=== PATIENT | female | born 1975 | race Caucasian/White ===

== ENCOUNTER 2017-10-11 21:57 | Inpatient (IN) | payer OTHER, MEDICAID ==
[~2017-10-11] VITALS: Ht 162.6 cm; Wt 62.9 kg
[2017-10-11 22:04] VITALS: BP 138/85; PULSE 93; RESP 18; TEMP 98.7; O2SAT 98
[2017-10-11] MEDS ORDERED: LEVO25TA4 PO (22:16)
[2017-10-11] MEDS ORDERED: MORPHINE SULFATE 4 MG/ML INJ IV PUSH ONE (22:30)
[2017-10-11] MEDS ORDERED: METOCLOPRAMIDE HCL 10 MG/2 ML VIAL IV PUSH ONE (22:30)
[2017-10-11 23:01] LABS: AUTOMATED NEUTROPHIL # 18.1 TH/MM3 (1.8-7.7); BASOPHIL # 0.1 TH/MM3 (0-0.2); BASOPHIL % 0.3 % (0.0-2.0); EOSINOPHIL # 0.2 TH/MM3 (0-0.4); EOSINOPHIL % 0.7 % (0.0-4.0); HEMATOCRIT 37.7 % (35.0-46.0); HEMOGLOBIN 12.7 GM/DL (11.6-15.3); LYMPH % 13.1 % (9.0-44.0); LYMPHOCYTE # 2.9 TH/MM3 (1.0-4.8); MEAN CORPUSCULAR HEMOGLOBIN 30.7 PG (27.0-34.0); MEAN CORPUSCULAR HGB CONC 33.7 % (32.0-36.0); MONOCYTE # 1.1 TH/MM3 (0-0.9); NEUT % 80.9 % (16.0-70.0); PLATELET COUNT 327 TH/MM3 (150-450); RED BLOOD COUNT 4.15 MIL/MM3 (4.00-5.30); WHITE BLOOD COUNT 22.4 TH/MM3 (4.0-11.0)
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
[2017-10-11] MEDS ORDERED: IOHEXOL 350 MG/ML 10 ML VIAL (for RAD DIAG) IVCONTRAST ONE (23:16)
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
[2017-10-11 23:31] LABS: ALKALINE PHOSPHATASE 56 U/L (45-117); TOTAL BILIRUBIN ADULT 0.2 MG/DL (0.2-1.0); TOTAL PROTEIN 7.2 GM/DL (6.4-8.2)
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
[2017-10-11 23:36] LABS: ALBUMIN 3.7 GM/DL (3.4-5.0); ALT (GPT) 27 U/L (10-53); AST (GOT) 32 U/L (15-37); BICARBONATE 20.5 MEQ/L (21.0-32.0); BLOOD UREA NITROGEN 22 MG/DL (7-18); CALCIUM 8.3 MG/DL (8.5-10.1); CHLORIDE 109 MEQ/L (98-107); GLOMERULAR FILTRATION RATE 61 ML/MIN (>89); GLUCOSE,RANDOM 162 MG/DL (74-106); SODIUM (NA) 141 MEQ/L (136-145)
[2017-10-12] MEDS ORDERED: SODIUM CHLOR 0.9% 1000 ML INJ 1,000 ML IV SCH (00:47)
[2017-10-12 00:52] VITALS: BP 114/79; PULSE 85; RESP 22; O2SAT 95
[2017-10-12] MEDS: PANTOPRAZOLE SODIUM 40 MG VIAL IVP SCH (01:00)
[2017-10-12] MEDS ORDERED: ENALAPRILAT 1.25 MG/ML VIAL IV PUSH PRN (01:00)
[2017-10-12] MEDS ORDERED: MAGNESIUM HYDROXIDE SUSP 30 ML CUP PO PRN (01:00)
[2017-10-12] MEDS ORDERED: SODIUM CHLORIDE 0.9% FLUSH 10 ML FLUSH IV FLUSH PRN (01:00)
[2017-10-12] MEDS ORDERED: ACETAMINOPHEN/HYDROcodone 325 MG/5 MG TAB PO PRN (01:00)
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
[2017-10-12] MEDS: MORPHINE SULFATE 4 MG/ML INJ IV PUSH PRN ×4 (01:41→21:20)
[2017-10-12] MEDS ORDERED: MORPHINE SULFATE 4 MG/ML INJ IV PUSH ONE (01:45)
[2017-10-12 02:25] VITALS: BP 119/83; PULSE 91; RESP 16; TEMP 98.6; O2SAT 94
[2017-10-12] MEDS: ACETAMINOPHEN/HYDROcodone 325 MG/5 MG TAB PO PRN ×3 (03:39→13:40)
[2017-10-12 07:08] LABS: AUTOMATED NEUTROPHIL # 15.2 TH/MM3 (1.8-7.7); BASOPHIL % 0.1 % (0.0-2.0); HEMATOCRIT 37.5 % (35.0-46.0); HEMOGLOBIN 12.7 GM/DL (11.6-15.3); LYMPH % 6.6 % (9.0-44.0); LYMPHOCYTE # 1.1 TH/MM3 (1.0-4.8); MEAN CELL VOLUME 91.5 FL (80.0-100.0); MEAN CORPUSCULAR HEMOGLOBIN 30.9 PG (27.0-34.0); MEAN CORPUSCULAR HGB CONC 33.8 % (32.0-36.0); MONO % 5.3 % (0.0-8.0); MONOCYTE # 0.9 TH/MM3 (0-0.9); PLATELET COUNT 268 TH/MM3 (150-450); RED CELL DISTRIBUTION WIDTH 12.8 % (11.6-17.2); WHITE BLOOD COUNT 17.3 TH/MM3 (4.0-11.0)
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
[2017-10-12 07:19] LABS: ALBUMIN 3.8 GM/DL (3.4-5.0); AST (GOT) 48 U/L (15-37); BICARBONATE 19.7 MEQ/L (21.0-32.0); CALCIUM 8.5 MG/DL (8.5-10.1); CHLORIDE 106 MEQ/L (98-107); CREATININE 0.83 MG/DL (0.50-1.00); GLOMERULAR FILTRATION RATE 76 ML/MIN (>89); GLUCOSE,RANDOM 111 MG/DL (74-106); SODIUM (NA) 139 MEQ/L (136-145)
[2017-10-12 07:20] LABS: ALT (GPT) 33 U/L (10-53)
[2017-10-12 07:22] LABS: ALKALINE PHOSPHATASE 58 U/L (45-117); BLOOD UREA NITROGEN 21 MG/DL (7-18); TOTAL BILIRUBIN ADULT 0.6 MG/DL (0.2-1.0); TOTAL PROTEIN 7.4 GM/DL (6.4-8.2)
[2017-10-12] MEDS ORDERED: SENNOSIDES 8.6 MG TAB PO PRN (07:45)
[2017-10-12] MEDS ORDERED: LACTULOSE SYRUP 20 GM/30 ML CUP PO PRN (07:45)
[2017-10-12] MEDS ORDERED: BISACODYL 10 MG SUPP RECTAL PRN (07:45)
[2017-10-12 07:57] VITALS: BP 114/76; PULSE 91; RESP 20; TEMP 98.1; O2SAT 92
[2017-10-12] MEDS ORDERED: POVIDONE IODINE 5% (ANTISEPSIS KIT) 4 APPLICATIONS EACH NARE PRN (08:15)
[2017-10-12] MEDS ORDERED: METOPROLOL TARTRATE 25 MG TAB PO PRN (08:15)
[2017-10-12] MEDS ORDERED: LACTATED RINGER'S 1000 ML IV PRN (08:15)
[2017-10-12] MEDS ORDERED: SODIUM CHLORID 0.9% 500 ML IV PRN (08:15)
[2017-10-12] MEDS ORDERED: CHLORHEXIDINE GLUCONATE 2 % 1 PACK (2 CLOTHS) TOPICAL PRN (08:15)
[2017-10-12] MEDS: LEVOTHYROXINE SODIUM 25 MCG TAB PO SCH (09:15)
[2017-10-12] MEDS: DOCUSATE SODIUM 50 MG/SENNA 8.6 MG TAB PO SCH ×2 (09:16→21:20)
[2017-10-12] MEDS: METHOCARBAMOL 500 MG TAB PO SCH ×2 (09:16→16:00)
[2017-10-12] MEDS: LIDOCAINE HCL 5% PATCH T-DERMAL SCH (09:16)
--- NOTE | 2017-10-12 10:40 | EKG ---
Date Performed: 10/11/2017 Time Performed: 22:21:14 PTAGE: 41 years EKG: Sinus rhythm POSSIBLE RV CONDUCTION DELAY BORDERLINE ECG NO PREVIOUS TRACING DOCTOR: Reza Cooley Interpretating Date/Time 10/12/2017 10:38:53
[2017-10-12 12:00] VITALS: BP 116/76; PULSE 83; RESP 16; TEMP 97.8; O2SAT 98
--- NOTE | 2017-10-12 12:16 | RADRPT ---
EXAM DATE: 10/12/2017 11:57 AM EDT AGE/SEX: 41 years / Female INDICATIONS: Trauma. Neck pain CLINICAL DATA: This is the patient's initial encounter. Patient reports that signs and symptoms have been present for 1 day and indicates a pain score of 4/10. MEDICAL/SURGICAL HISTORY: None. Tubal ligation. Tonsillectomy. COMPARISON: No prior exams available for comparison. TECHNIQUE: Multiplanar, multisequence MRI examination of the cervical spine was performed without co ntrast. FINDINGS: Vertebrae: Normal vertebral body height. Homogeneous marrow signal. Alignment: Normal. Cord: Normal configuration and signal. Post Fossa: The cerebellar tonsils are normal in position. C2-C3: The thecal sac has a normal configuration. There is no evidence of disc herniation or spinal canal stenosis. The neural foramina are patent bilaterally. C3-C4: The thecal sac has a normal configuration. There is no evidence of disc herniation or spinal canal stenosis. The neural foramina are patent bilaterally. C4-C5: Mild uncinate ridging with minimal bulging. Neuroforamen are adequate. C5-C6: Generalized disc bulging present eccentric to the left with minimal left-sided neural foramin al encroachment. Mild spinal stenosis. C6-C7: Mild generalized bulging present without significant spinal stenosis. C7-T1: No epidural impressions seen. CONCLUSION: 1. Mild degenerative changes. Generous spinal canal without spinal stenosis. 2. Most different findings at C5-C6. Electronically signed by: Shaan Jc MD 10/12/2017 12:14 PM EDT
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
[2017-10-12] MEDS ORDERED: VANCOMYCIN HCL 1000 MG VIAL ONE (15:43)
[2017-10-12] MEDS ORDERED: GENTAMICIN SULFATE 80 MG/2 ML VIAL ONE (15:43)
[2017-10-12] MEDS ORDERED: ceFAZolin INJ 1,000 MG VIAL ONE (15:43)
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
[2017-10-12] MEDS ORDERED: BUPIVACAINE/EPINEPHRINE 0.5% PF 30 ML VIAL ONE (15:48)
[2017-10-12] MEDS ORDERED: NEOSTIGMINE 5 MG/5 ML SYRINGE IV PUSH ONE (16:30)
[2017-10-12] MEDS ORDERED: DEXAMETHASONE SOD PHOS 4 MG/ML VIAL IV ONE (16:30)
[2017-10-12] MEDS ORDERED: SUCCINYLCHOLINE CHLORIDE 100 MG/5 ML SYRINGE IV PUSH ONE (16:30)
[2017-10-12] MEDS ORDERED: GLYCOPYRROLATE 1 MG/5 ML SYRINGE IV PUSH ONE (16:30)
[2017-10-12] MEDS ORDERED: LIDOCAINE HCL 1% PF 5 ML SYRINGE OTHER ONE (16:30)
[2017-10-12] MEDS ORDERED: LACTATED RINGER'S 1000 ML INJ 1,000 ML IV ONE (16:30)
[2017-10-12] MEDS ORDERED: PROPOFOL 200 MG/20 ML AMP IV ONE (16:30)
[2017-10-12] MEDS ORDERED: ONDANSETRON HCL 4 MG/2 ML VIAL IV PUSH ONE (16:30)
[2017-10-12] MEDS ORDERED: ROCURONIUM INJ 50 MG/5 ML SYRINGE IV PUSH ONE (16:30)
--- NOTE | 2017-10-12 17:23 | HHI.PR ---
cc: Lina Kelly MD Immediate Post Op Note Procedure Date: Oct 12, 2017 Pre Op Diagnosis: Closed right midshaft displaced clavicle fracture Post Op Diagnosis: Same Surgeon: Lina Kelly Child Care Attendant School(s): None Procedure: Open reduction internal fixation right clavicle Complications: None Specimen(s) removed: None Estimated blood loss: 25 cc Anesthesia: General Drains: None IVF Patient to: PACU Patient Condition: Good Implant/Devices: SEE IMPLANT LOG (if applicable) Date/Time of Procedure: SEE SURGICAL CARE RECORD Lina Kelly MD Oct 12, 2017 17:23
--- NOTE | 2017-10-12 17:26 | PD.ORT.PN ---
Subjective Subjective Remarks POD#0 s/p ORIF R clavicle Objective Vitals Vital Signs Date Time Temp Pulse Resp B/P (MAP) Pulse Ox O2 Delivery O2 Flow Rate FiO2 10/12/17 12:00 97.8 83 16 116/76 (89) 98 10/12/17 07:57 98.1 91 20 114/76 (89) 92 10/12/17 02:25 98.6 91 16 119/83 (95) 94 10/12/17 01:51 10/12/17 00:52 85 22 114/79 (91) 95 Room Air 10/11/17 22:04 98.7 93 18 138/85 (102) 98 I/O 10/11/17 10/11/17 10/11/17 10/12/17 10/12/17 10/12/17 07:00 15:00 23:00 07:00 15:00 23:00 Intake Total 350 ml Balance 350 ml Intake Oral 350 ml # Voids 1 Result Diagram: 10/12/17 0528 10/12/17 0525 Imaging Last 24 hours Impressions Chest X-Ray 10/12/17 0600 Signed Impressions: CONCLUSION: Right rib fractures and right clavicle fracture. Hazy density over the right lung likely related to contusion. A significant pneumothorax is not seen on this plain film examination. The ana paula ent has a minimal right pneumothorax seen on the CT of the chest. Clavicle X-Ray 10/12/17 0000 Signed Impressions: CONCLUSION: Fracture midshaft right clavicle Cervical Spine MRI 10/12/17 0000 Signed Impressions: CONCLUSION: 1. Mild degenerative changes. Generous spinal canal without spinal stenosis. 2. Most different findings at C5-C6. Objective Remarks Right upper extremity: Dressing in place. No significant drainage. Neurovascularly intact distally. Brisk cap refill. Assessment & Plan Assessment and Plan 41-year-old female, POD#0 s/p ORIF R clavicle fracture 1. Nonweightbearing right upper extremity. Sling when up and out of bed. 2. Physical therapy for mobilization. Okay to start pendulum exercises on the right shoulder as tolerated. 3. Dressing may remain in place provided it remains clean and dry. 4. Patient may be discharged when medically safe from trauma standpoint. Follow-up in my office in 2 weeks, if she remains in the area. Patient is from [place] and may follow-up with orthopedic surgeon upon return home as well. Lina Kelly MD Oct 12, 2017 17:26
--- NOTE | 2017-10-12 17:26 | RADRPT ---
EXAM DATE: 10/12/2017 5:24 PM EDT AGE/SEX: 41 years / Female INDICATIONS: Open reduction internal fixation of right clavicle fracture CLINICAL DATA: This is the patient's initial encounter. Patient reports that signs and symptoms have been present for 1 day and indicates a pain score of Nonresponsive. MEDICAL/SURGICAL HISTORY: None. None. COMPARISON: No prior exams available for comparison. FINDINGS: Plate with screws is seen bridging the fracture the clavicle. Alignment anatomic. CONCLUSION: Anatomic alignment. Electronically signed by: Shaan Jc MD 10/12/2017 5:24 PM EDT
[2017-10-12] MEDS ORDERED: Post-op Orders (for Pharmacy) XX ONE (17:30)
[2017-10-12] MEDS ORDERED: *MEPERIDINE 25 MG INJ VIAL PERIprocedural Use ONLY ONE (17:40)
[2017-10-12] MEDS ORDERED: DO NOT ADM ANY ANTICOAGULANT DRUGS PRN (17:42)
[2017-10-12] MEDS ORDERED: MIDAZOLAM HCL 2 MG/2 ML VIAL ONE (17:53)
--- NOTE | 2017-10-12 18:33 | RADRPT ---
EXAM DATE: 10/12/2017 6:25 PM EDT AGE/SEX: 41 years / Female INDICATIONS: Shortness of breath. CLINICAL DATA: This is the patient's initial encounter. Patient reports that signs and symptoms have been present for 1 day and indicates a pain score of Nonresponsive. MEDICAL/SURGICAL HISTORY: None. Tubal ligation. COMPARISON: [facility], CHEST SINGLE AP, 10/12/2017. . FINDINGS: There is plate and screw fixation of the right clavicle. Diffuse airspace disease in both lungs is in creased from exam performed earlier today. Probable trace pleural fluid. No pneumothorax. Multiple ri ght rib fractures. Heart size within normal limits. CONCLUSION: Slight increase in bilateral airspace disease since earlier exam. Multiple right rib fractures withou t pneumothorax. Fixation right clavicle fracture. Electronically signed by: Boris Shea MD 10/12/2017 6:31 PM EDT
[2017-10-12 20:00] VITALS: BP 102/70; PULSE 87; RESP 16; TEMP 97.7; O2SAT 97
[2017-10-13] VITALS: BP 117/69; PULSE 79; RESP 16; TEMP 97.9; O2SAT 99
[2017-10-13] MEDS: PANTOPRAZOLE SODIUM 40 MG VIAL IVP SCH (00:59)
[2017-10-13] MEDS: METHOCARBAMOL 500 MG TAB PO SCH ×4 (00:59→23:15)
[2017-10-13] MEDS: SODIUM CHLORIDE 0.9% FLUSH 10 ML FLUSH IV FLUSH SCH ×3 (01:00→21:02)
[2017-10-13] MEDS: MORPHINE SULFATE 4 MG/ML INJ IV PUSH PRN ×3 (01:12→23:21)
[2017-10-13 04:00] VITALS: BP 115/65; PULSE 82; RESP 18; TEMP 97.9; O2SAT 98
[2017-10-13] MEDS: LEVOTHYROXINE SODIUM 25 MCG TAB PO SCH (05:22)
--- NOTE | 2017-10-13 06:23 | RADRPT ---
EXAM DATE: 10/13/2017 5:51 AM EDT AGE/SEX: 41 years / Female INDICATIONS: Pneumothorax. Rib fractures. CLINICAL DATA: This is the patient's subsequent encounter. Patient reports that signs and symptoms h ave been present for 2 days and indicates a pain score of 8/10. MEDICAL/SURGICAL HISTORY: None. Tonsillectomy. Tubal ligation. Right clavicle. [place] [facility] [place] [facility] [place]. . FINDINGS: A single AP view of the chest demonstrates bibasilar patchy airspace disease. Right-sided rib fractur es. Plate and screws along the right clavicle The cardiomediastinal contours are unremarkable. [place] us structures are intact. CONCLUSION: Improving bilateral patchy opacities Electronically signed by: Rolando Collado MD 10/13/2017 6:22 AM EDT
[2017-10-13] MEDS: MAGNESIUM HYDROXIDE SUSP 30 ML CUP PO SCH ×3 (07:45→21:01)
[2017-10-13 08:00] VITALS: BP 127/70; PULSE 107; RESP 17; TEMP 98; O2SAT 96
[2017-10-13] MEDS: DOCUSATE SODIUM 50 MG/SENNA 8.6 MG TAB PO SCH ×2 (08:15→21:01)
[2017-10-13] MEDS ORDERED: PERI PO (08:16)
[2017-10-13] MEDS ORDERED: MAGN30S PO (08:16)
[2017-10-13] MEDS: ACETAMINOPHEN/HYDROcodone 325 MG/5 MG TAB PO PRN (08:19)
[2017-10-13] MEDS: LIDOCAINE HCL 5% PATCH T-DERMAL SCH (08:25)
--- NOTE | 2017-10-13 08:29 | PD.ORT.PN ---
Subjective Post Op Day #: 2 Subjective Remarks pain tolerable in R clavicle. pain in c-spine with numbness ulner nerve distribution - neuro following. Objective Vitals Vital Signs Date Time Temp Pulse Resp B/P (MAP) Pulse Ox O2 Delivery O2 Flow Rate FiO2 10/13/17 04:00 97.9 82 18 115/65 (82) 98 10/13/17 00:00 97.9 79 16 117/69 (85) 99 10/12/17 20:00 97.7 87 16 102/70 (81) 97 10/12/17 18:30 73 13 111/67 (82) 95 Nasal Cannula 3 10/12/17 18:15 71 13 108/65 (79) 94 Nasal Cannula 3 10/12/17 18:00 69 12 109/63 (78) 96 Nasal Cannula 3 10/12/17 17:45 75 12 130/78 (95) 95 Nasal Cannula 3 10/12/17 17:41 98.3 97 18 141/81 (101) 93 Nasal Cannula 3 10/12/17 12:00 97.8 83 16 116/76 (89) 98 I/O 10/12/17 10/12/17 10/12/17 10/13/17 10/13/17 10/13/17 07:00 15:00 23:00 07:00 15:00 23:00 Intake Total 350 ml 990 ml 360 ml Output Total 25 ml Balance 350 ml 965 ml 360 ml Intake Oral 350 ml 90 ml 360 ml Other 900 ml Output Estimated Blood Loss 25 ml # Voids 1 1 1 Result Diagram: 10/12/17 0528 10/12/17 0525 Imaging Last 24 hours Impressions Chest X-Ray 10/12/17 0600 Signed Impressions: CONCLUSION: Right rib fractures and right clavicle fracture. Hazy density over the right lung likely related to contusion. A significant pneumothorax is not seen on this plain film examination. The ana paula ent has a minimal right pneumothorax seen on the CT of the chest. Clavicle X-Ray 10/12/17 0000 Signed Impressions: CONCLUSION: Fracture midshaft right clavicle Cervical Spine MRI 10/12/17 0000 Signed Impressions: CONCLUSION: 1. Mild degenerative changes. Generous spinal canal without spinal stenosis. 2. Most different findings at C5-C6. Objective Remarks Right upper extremity: Dressing in place. No significant drainage. Neurovascularly intact distally. Brisk cap refill. Assessment & Plan Ortho Post Op Day #: 1 Problem List: Assessment and Plan 41-year-old female, POD#2 s/p ORIF R clavicle fracture 1. Nonweightbearing right upper extremity. Sling when up and out of bed. 2. Physical therapy for mobilization. Okay to start pendulum exercises on the right shoulder as tolerated. 3. Dressing may remain in place provided it remains clean and dry. 4. Patient may be discharged when medically safe from trauma standpoint. Follow-up in my office in 2 weeks, if she remains in the area. Patient is from [place] and may follow-up with orthopedic surgeon upon return home as well. Seth Whyte Oct 13, 2017 08:29
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
[2017-10-13 12:00] VITALS: BP 103/68; PULSE 80; RESP 18; TEMP 97.8; O2SAT 93
[2017-10-13] MEDS: KETOROLAC TROMETHAMINE 30 MG/ML (IVP) VIAL IV PUSH SCH ×3 (12:34→23:15)
[2017-10-13] MEDS: ACETAMINOPHEN 1000 MG/100 ML 100 ML IV SCH ×3 (12:35→23:15)
[2017-10-13 16:00] VITALS: BP 107/69; PULSE 78; RESP 16; TEMP 99; O2SAT 94
[2017-10-13 20:00] VITALS: BP 120/75; PULSE 74; RESP 18; TEMP 96.2; O2SAT 97
[2017-10-13] MEDS: ONDANSETRON ODT 4 MG TAB PO PRN (22:01)
[2017-10-13] MEDS: SODIUM CHLORIDE 0.9% FLUSH 10 ML FLUSH IV FLUSH PRN (23:21)
[2017-10-14] VITALS: BP 118/75; PULSE 86; RESP 18; TEMP 99.8; O2SAT 95
[2017-10-14] MEDS: PANTOPRAZOLE SODIUM 40 MG VIAL IVP SCH (00:33)
[2017-10-14] MEDS: SODIUM CHLORIDE 0.9% FLUSH 10 ML FLUSH IV FLUSH PRN ×3 (00:33→22:22)
[2017-10-14] MEDS: ONDANSETRON ODT 4 MG TAB PO PRN (03:59)
[2017-10-14] MEDS: ACETAMINOPHEN 1000 MG/100 ML 100 ML IV SCH ×3 (05:48→18:56)
[2017-10-14] MEDS: KETOROLAC TROMETHAMINE 30 MG/ML (IVP) VIAL IV PUSH SCH ×3 (05:49→18:56)
[2017-10-14] MEDS: LEVOTHYROXINE SODIUM 25 MCG TAB PO SCH (05:49)
[2017-10-14 06:01] LABS: AUTOMATED NEUTROPHIL # 6.2 TH/MM3 (1.8-7.7); BASOPHIL % 0.4 % (0.0-2.0); EOSINOPHIL # 0.1 TH/MM3 (0-0.4); EOSINOPHIL % 1.4 % (0.0-4.0); HEMATOCRIT 31.5 % (35.0-46.0); HEMOGLOBIN 10.8 GM/DL (11.6-15.3); LYMPH % 20.7 % (9.0-44.0); LYMPHOCYTE # 1.8 TH/MM3 (1.0-4.8); MEAN CELL VOLUME 91.4 FL (80.0-100.0); MEAN CORPUSCULAR HEMOGLOBIN 31.3 PG (27.0-34.0); MEAN CORPUSCULAR HGB CONC 34.2 % (32.0-36.0); MEAN PLATELET VOLUME 7.6 FL (7.0-11.0); MONO % 8.3 % (0.0-8.0); MONOCYTE # 0.7 TH/MM3 (0-0.9); NEUT % 69.2 % (16.0-70.0); PLATELET COUNT 235 TH/MM3 (150-450); RED BLOOD COUNT 3.45 MIL/MM3 (4.00-5.30); WHITE BLOOD COUNT 8.9 TH/MM3 (4.0-11.0)
[2017-10-14 06:32] LABS: BICARBONATE 24.1 MEQ/L (21.0-32.0); CALCIUM 7.9 MG/DL (8.5-10.1); CREATININE 0.64 MG/DL (0.50-1.00)
--- NOTE | 2017-10-14 06:42 | RADRPT ---
EXAM DATE: 10/14/2017 5:50 AM EDT AGE/SEX: 41 years / Female INDICATIONS: Pneumothorax. Rib fractures. CLINICAL DATA: This is the patient's subsequent encounter. Patient reports that signs and symptoms h ave been present for 3 days and indicates a pain score of 5/10. MEDICAL/SURGICAL HISTORY: None. . Tonsillectomy. Tubal ligation. Right clavicle. [place] [facility] [place]. . FINDINGS: A single AP view of the chest demonstrates worsening airspace disease throughout the right lung and l eft lower lobe. Heart normal in size. Plate and screws along the right clavicle. The cardiomediastin al contours are unremarkable. Osseous structures are intact. CONCLUSION: Worsening airspace disease bilaterally Electronically signed by: Rolando Collado MD 10/14/2017 6:41 AM EDT
[2017-10-14] MEDS: MAGNESIUM HYDROXIDE SUSP 30 ML CUP PO SCH ×2 (08:06→21:16)
[2017-10-14] MEDS: DOCUSATE SODIUM 50 MG/SENNA 8.6 MG TAB PO SCH ×2 (08:06→21:16)
[2017-10-14] MEDS: SODIUM CHLORIDE 0.9% FLUSH 10 ML FLUSH IV FLUSH SCH ×2 (08:07→21:00)
[2017-10-14] MEDS: LIDOCAINE HCL 5% PATCH T-DERMAL SCH (08:07)
[2017-10-14] MEDS: METHOCARBAMOL 500 MG TAB PO SCH ×2 (08:07→15:17)
[2017-10-14] MEDS ORDERED: POTASSIUM CHLORIDE 20 MEQ CONTROLLED RELEASE TAB PO ONE (10:00)
[2017-10-14 10:07] VITALS: BP 125/67; PULSE 76; RESP 19; TEMP 98; O2SAT 88
--- NOTE | 2017-10-14 10:43 | PD.ORT.PN ---
Subjective Post Op Day #: 3 Subjective Remarks pain tolerable in R clavicle. pain in c-spine with numbness ulner nerve distribution - neuro following. Objective Vitals Vital Signs Date Time Temp Pulse Resp B/P (MAP) Pulse Ox O2 Delivery O2 Flow Rate FiO2 10/14/17 10:07 98.0 76 19 125/67 (86) 88 10/14/17 00:00 99.8 86 18 118/75 (89) 95 10/13/17 20:25 92 2.00 10/13/17 20:00 96.2 74 18 120/75 (90) 97 10/13/17 16:00 94 Room Air 10/13/17 16:00 99.0 78 16 107/69 (82) 94 10/13/17 12:00 97.8 80 18 103/68 (80) 93 I/O 10/13/17 10/13/17 10/13/17 10/14/17 10/14/17 10/14/17 07:00 15:00 23:00 07:00 15:00 23:00 Intake Total 360 ml 1361 ml 350 ml Balance 360 ml 1361 ml 350 ml Intake Oral 360 ml 350 ml IV Total 1361 ml # Voids 1 2 1 Result Diagram: 10/14/17 0518 10/14/17 0518 Imaging Last 24 hours Impressions Chest X-Ray 10/12/17 0600 Signed Impressions: CONCLUSION: Right rib fractures and right clavicle fracture. Hazy density over the right lung likely related to contusion. A significant pneumothorax is not seen on this plain film examination. The ana paula ent has a minimal right pneumothorax seen on the CT of the chest. Clavicle X-Ray 10/12/17 0000 Signed Impressions: CONCLUSION: Fracture midshaft right clavicle Cervical Spine MRI 10/12/17 0000 Signed Impressions: CONCLUSION: 1. Mild degenerative changes. Generous spinal canal without spinal stenosis. 2. Most different findings at C5-C6. Objective Remarks Right upper extremity: Dressing in place. No significant drainage. Neurovascularly intact distally. Brisk cap refill. Assessment & Plan Ortho Post Op Day #: 3 Problem List: Assessment and Plan 41-year-old female, POD#3 s/p ORIF R clavicle fracture 1. Nonweightbearing right upper extremity. Sling when up and out of bed. 2. Physical therapy for mobilization. Okay to start pendulum exercises on the right shoulder as tolerated. 3. Dressing may remain in place provided it remains clean and dry. 4. Patient may be discharged when medically safe from trauma standpoint. Follow-up in my office in 2 weeks, if she remains in the area. Patient is from [place] and may follow-up with orthopedic surgeon upon return home as well. If she is going home, please provide copies of operative report as well as xrays. Seth Whyte Oct 14, 2017 10:43
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
[2017-10-14] MEDS ORDERED: diphenhydrAMINE HCL 25 MG CAP PO PRN (11:30)
[2017-10-14] MEDS: ENOXAPARIN SODIUM 40 MG/0.4 ML SYRINGE SQ SCH (14:00)
[2017-10-14 20:00] VITALS: BP 126/79; PULSE 81; RESP 18; TEMP 98.3; O2SAT 95
[2017-10-14] MEDS: MORPHINE SULFATE 4 MG/ML INJ IV PUSH PRN (22:21)
[2017-10-15] VITALS: BP 116/60; PULSE 75; RESP 14; TEMP 98.2; O2SAT 95
[2017-10-15] MEDS: METHOCARBAMOL 500 MG TAB PO SCH ×3 (00:32→14:47)
[2017-10-15] MEDS: PANTOPRAZOLE SODIUM 40 MG VIAL IVP SCH (00:33)
[2017-10-15] MEDS: KETOROLAC TROMETHAMINE 30 MG/ML (IVP) VIAL IV PUSH SCH ×3 (00:34→12:00)
[2017-10-15] MEDS: SODIUM CHLORIDE 0.9% FLUSH 10 ML FLUSH IV FLUSH PRN (00:39)
[2017-10-15 04:00] VITALS: BP 126/73; PULSE 84; RESP 14; TEMP 98.1; O2SAT 95
[2017-10-15] MEDS: LEVOTHYROXINE SODIUM 25 MCG TAB PO SCH (05:49)
--- NOTE | 2017-10-15 06:29 | RADRPT ---
EXAM DATE: 10/15/2017 6:24 AM EDT AGE/SEX: 41 years / Female INDICATIONS: Follow up trauma, pain right clavicle, short of breath CLINICAL DATA: This is the patient's subsequent encounter. Patient reports that signs and symptoms h ave been present for 4 - 6 days and indicates a pain score of 10/10. MEDICAL/SURGICAL HISTORY: . right clavicle fracture, pneumothorax, rib fracture Tonsillectomy. Tubal ligation. right clavicle repaired, chest tube COMPARISON: [facility] – [place] CHEST SINGLE AP, 10/14/2017. . FINDINGS: Single view the chest demonstrates some residual atelectasis in the right lung base, improved since t he 17. Small right pleural effusion remains. Mild left basilar atelectasis. Numerous right-sided ri b fractures and fixated right clavicle fracture CONCLUSION: Improved aeration of the right lung base. Pleural effusion smaller. Right rib fractures remain Electronically signed by: Adelso Ford MD 10/15/2017 6:27 AM EDT
[2017-10-15] MEDS: MAGNESIUM HYDROXIDE SUSP 30 ML CUP PO SCH (07:45)
[2017-10-15 08:00] VITALS: BP 121/72; PULSE 88; RESP 16; TEMP 98.2; O2SAT 96
[2017-10-15] MEDS: SODIUM CHLORIDE 0.9% FLUSH 10 ML FLUSH IV FLUSH SCH (08:23)
[2017-10-15] MEDS: LIDOCAINE HCL 5% PATCH T-DERMAL SCH (08:23)
[2017-10-15] MEDS: DOCUSATE SODIUM 50 MG/SENNA 8.6 MG TAB PO SCH (08:23)
[2017-10-15] MEDS ORDERED: LACTULOSE SYRUP 20 GM/30 ML CUP PO SCH (09:00)
[2017-10-15] MEDS ORDERED: METH500T3 PO (11:36)
[2017-10-15] MEDS ORDERED: LIDO1ADH4 T-DERMAL (11:36)
[2017-10-15] MEDS ORDERED: PERC5TAB12 PO (11:36)
[2017-10-15] MEDS ORDERED: IBUP-232 PO (11:37)
[2017-10-15 12:00] VITALS: BP 135/79; PULSE 88; RESP 16; TEMP 98.1; O2SAT 95
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
[2017-10-15] MEDS: ENOXAPARIN SODIUM 40 MG/0.4 ML SYRINGE SQ SCH (14:00)
== END 2017-10-15 16:31 | disposition home or self-care (01) | DRG 982 ==
LOC: NEPC 21:57 → NEDA 10-12 00:46 → N06B 10-12 02:04
PROVIDERS: ADMIT Surgery; ATTEND Surgery
PROC: 2W32X3Z Immobilization of Neck using Brace (ICD-10-PCS; 2017-10-12)
PROC: 0PS904Z Reposition Right Clavicle with Internal Fixation Device, Open Approach (ICD-10-PCS; principal; 2017-10-12 15:57)
DX: S22.41XA Multiple fractures of ribs, right side, initial encounter for closed fracture (principal); S27.0XXA Traumatic pneumothorax, initial encounter; S42.021A Displaced fracture of shaft of right clavicle, initial encounter for closed fracture; S27.321A Contusion of lung, unilateral, initial encounter; M50.20 Other cervical disc displacement, unspecified cervical region; E03.9 Hypothyroidism, unspecified; W17.89XA Other fall from one level to another, initial encounter; R20.0 Anesthesia of skin; Y93.I1 Activity, roller coaster riding
CPT/HCPCS: 70450; 71045; 71260; 72125; 72141; 73000; 74177; 80048; 80053; 85025; 93005; 94150; 94667; 94668; 96374; 96375; C1713; C9113; J0131; J0330; J0690; J1100; J1580; J1650; J1885; J2175; J2250; J2270; J2405; J2710; J2765; J3010; J3370; J7030; J7120; L0150; L0172; Q9967